=== PATIENT | female | born 1995 | race African-American/Black ===

== ENCOUNTER 2019-03-01 09:23 | Emergency (ER) | payer SELFPAY ==
[~2019-03-01] VITALS: Ht 160 cm; Wt 53.1 kg
--- NOTE | 2019-03-01 09:36 | NUR ---
mom got upset dropped her off for psych eval "i lie alot" -SI/HI. on room air, breathing evenly and unlabored. kept comfortable, will continue to monitor accordingly.
--- NOTE | 2019-03-01 09:48 | NUR ---
urine collected and sent to lab
[2019-03-01 09:57] LABS: APPEARANCE,URINE Clear (CLEAR); BILIRUBIN,URINE Negative (NEGATIVE); BLOOD, URINE Negative Ery/uL (NEGATIVE); COLOR,URINE Yellow (YELLOW); KETONES,URINE Negative (NEGATIVE); LEUKOCYTE ESTERASE ,URINE Negative (NEGATIVE); NITRITE, URINE Negative (NEGATIVE); PROTEIN,URINE Negative (NEGATIVE); UGLUCOSE Negative (NEGATIVE); UROBILINOGEN,URINE 0.2 EU/dL (0.2)
[2019-03-01 10:04] LABS: BASOPHILS % (AUTO) 0.9 % (0.0-2.0); EOSINOPHILS % (AUTO) 2.4 % (0.0-6.0); HEMATOCRIT 43 % (33-45); HEMOGLOBIN 13.8 g/dL (11.5-14.8); LYMPHOCYTES # (AUTO) 1.8 /CMM (0.8-4.8); LYMPHOCYTES % (AUTO) 39.6 % (20.0-44.0); MEAN CORPUSCULAR HGB CONC 32 g/dl (31.0-36.0); MEAN CORPUSCULAR VOLUME 85 fL (82-100); MONOCYTES # (AUTO) 0.5 /CMM (0.1-1.30); MONOCYTES % (AUTO) 11.9 % (2.0-12.0); NEUTROPHILS # (AUTO) 2.1 /CMM (1.8-8.9); NEUTROPHILS % (AUTO) 45.2 % (43.0-81.0); PLATELET COUNT (AUTO) 419 /CMM (150-450); RED BLOOD CELL COUNT(AUTO) 5.03 MIL/uL (4.0-5.2); WHITE BLOOD COUNT (AUTO) 4.6 K/uL (4.3-11.0)
[2019-03-01 10:12] LABS: CALCIUM, SERUM 9.9 mg/dL (8.5-10.1); CARBON DIOXIDE 29 mmol/L (21-32); CHLORIDE 103 mmol/L (98-107); CREATININE 0.9 mg/dL (0.6-1.3); GLUCOSE 85 mg/dL (74-106); POTASSIUM 3.6 mmol/L (3.5-5.1); SODIUM SERUM 139 mmol/L (136-145); UREA NITROGEN, BLOOD 17 mg/dL (7-18)
--- NOTE | 2019-03-01 10:16 | NUR ---
security at bedside for wanding
[2019-03-01 10:26] LABS: ALANINE AMINOTRANSFERASE 18 U/L (12-78); ALBUMIN 4.6 g/dL (3.4-5.0); ALKALINE PHOSPHATASE 57 U/L (46-116); ASPARTATE AMINOTRANSFERASE 12 U/L (15-37); BILIRUBIN,DIRECT 0.1 mg/dL (0.0-0.2); BILIRUBIN,TOTAL 0.8 mg/dL (0.2-1.0); TOTAL PROTEIN, SERUM 8.6 g/dL (6.4-8.2)
[2019-03-01 10:30] LABS: ACETAMINOPHEN 0 ug/ml (10-30); ALCOHOL, BLOOD < 3 mg/dL (0-0); SALICYLATE 0.4 mg/dL (2.8-20.0)
--- NOTE | 2019-03-01 10:40 | NUR ---
MOM ALEX CALLED TO CHECK ON STATUS OF DAUGHTER . MOTHER IS RESPONSIBLE LIBERTARIAN FOR HER.
--- NOTE | 2019-03-01 12:37 | NUR ---
XANDER ENRIQUEZ CALLED FOR EVAL
--- NOTE | 2019-03-01 12:50 | NUR ---
CALL BACK FROM [place] ENRIQUEZ, WILL SEND DOMENICO ENRIQUEZ
--- NOTE | 2019-03-01 16:34 | NUR ---
SS consultation: The pt. is a 23 year old Female BIB the pt.s mother, Megha Braxton [phone] for intermittent suicidal ideation and significant argument with her mother which began because the pt. lies too much to her mother. Upon SS consultation, the pt. was laying on her bed and was receptive to meeting with SW. The pt. appears well-groomed, alert and oriented x 4 and makes appropriate eye contact. The pt. remained calm and cooperative throughout interview. SW used Suicide Severity Scale, however, the pt. denies current SI/HI. Per patient, she has experienced mental health symptoms for as long as she can remember. Per patient she has never received psychiatric services and has seen a therapist/ counselor in the past which did not help. Patient stated she believes to have depression and would like resources to deal with her mental health symptoms. SW provide a list of psychiatric Outpatient Services including: [facility] [[address] [facility] [address]; [phone]] as well as a list of Outpatient Counseling Services in the [facility] including: [facility] [[address] [facility] [place]; [phone]] and [facility] [[address] [facility] [address]; [phone]]. The pt. gave verbal consent for SW to contact the pt.s mother, Megha and SW relayed the above stated information. Megha and the pt. expressed understanding and were agreeable to plan. The pt. will be picked up to go home [[address] [facility] [address]] with her mother Megha Braxton.
[2019-03-01 16:39] VITALS: BP 120/71
--- NOTE | 2019-03-01 16:39 | NUR ---
Patient discharged to home in stable condition. Written and verbal after care instructions given. Patient verbalizes understanding of instruction. picked up by mom in no distress.
== END 2019-03-01 16:39 | disposition home or self-care (01) ==
LOC: ER 09:23
DX: F32.9 Major depressive disorder, single episode, unspecified (principal); F41.9 Anxiety disorder, unspecified; F90.9 Attention-deficit hyperactivity disorder, unspecified type
CPT/HCPCS: 36415; 80048; 80076; 80305; 80307; 80329; 81001; 84703; 85025; 99284; G0480; 81000-TC